=== PATIENT | female | born 1950 | race Caucasian/White ===

== ENCOUNTER 2023-12-19 17:27 | Emergency (ER) | payer MEDICARE, MEDICAID, SELFPAY ==
[2023-12-19 17:30] VITALS: BP 102/68; PULSE 79; RESP 19; TEMP 36.4; O2SAT 95; BMI 21.4
--- NOTE | 2023-12-19 17:40 | NURSING ---
NO OLD EKGS
--- NOTE | 2023-12-19 17:45 | EKG12_ITS ---
Test Reason : SYNCOPE Blood Pressure : / mmHG Vent. Rate : 079 BPM Atrial Rate : 079 BPM P-R Int : 186 ms QRS Dur : 086 ms QT Int : 394 ms P-R-T Axes : 061 -43 073 degrees QTc Int : 451 ms Normal sinus rhythm Left axis deviation Abnormal ECG Confirmed by FLORENCIO HIGGINS, PAULINA ([id number]), slot editor KATHY GUTIÉRREZ ([id number]) on 12/21/2023 10:44:29 AM Referred By: JADEN/ANASTASIA Confirmed By:PAULINA MATIAS MD
--- NOTE | 2023-12-19 17:48 | EX.ED.DYSGE1 ---
HPI <AMA Tello - Last Filed: 12/19/23 21:24> History of Present Illness Chief Complaint: Syncope Narrative Narrative: Patient presenting today due to a syncopal episode that occurred this evening. She reports that this has happened a few times over the past several months. She has been evaluated by her PCP for this with no clear cause. She reports that her and her daughter were going to go out to dinner when her leg started shaking, she was standing and felt like she was going to fall so she lowered herself to the ground and passed out. She denies hitting her head. She denies any history of seizures. She does admit to daily alcohol use and drinks about 2-3 beers each day, she did report having 2 beers today. She reports a PMH of hypothyroidism. She denies fevers, chills, chest pain, shortness of breath, abdominal pain, nausea, and vomiting. PFSH <AMA Tello - Last Filed: 12/19/23 21:24> PFSH Home Medications ?Medication ?Instructions ?Recorded ?Last Taken ?Type levothyroxine 100 mcg tablet 100 mcg PO DAILY 12/19/23 Unknown History (Euthyrox) Allergy/AdvReac Type Severity Reaction Status Date / Time No Known Allergies Allergy Verified 12/19/23 17:36 Social History Smoking Status: Never smoker ROS <AMA Tello - Last Filed: 12/19/23 21:24> ROS ED Constitutional Constitutional ED: Denies chills or fever(s) Cardiovascular Cardiovascular: Denies chest pain Respiratory/Chest Respiratory/Chest: Denies dyspnea Gastrointestinal Gastrointestinal: Denies abdominal pain, nausea or vomiting Genitourinary Genitourinary ED: Denies dysuria Musculoskeletal Musculoskeletal: Denies arthralgias or myalgias Integumentary Denies rash Neurologic Neurologic: Denies weakness EXAM <AMA Tello - Last Filed: 12/19/23 21:24> Physical Exam Const Vital Signs: 12/19/23 17:30 12/19/23 17:38 12/19/23 17:45 Temperature 97.6 F L Temperature Source Temporal Pulse Rate 79 Respiratory Rate 19 H Respiratory Effort Normal Non-Labored Respiratory Pattern Normal Blood Pressure 102/68 Blood Pressure Mean 79 Pulse Ox 95 Oxygen Delivery Method Room Air Room Air 12/19/23 18:55 12/19/23 20:00 12/19/23 20:30 Temperature 98.0 F Temperature Source Pulse Rate 83 87 75 Respiratory Rate 20 H 20 H 16 Respiratory Effort Respiratory Pattern Blood Pressure 152/84 H 136/84 H 134/68 H Blood Pressure Mean 106 101 90 Pulse Ox 96 95 100 Oxygen Delivery Method Room Air Room Air Positive well nourished, well developed and no apparent distress General Appearance ED: well developed HEENT Reports normocephalic and head/scalp atraumatic Mouth ED: Yes moist mucous membranes normal Eyes PERRL and EOMs intact bilaterally Neck full ROM and supple Chest Wall inspection of chest normal Resp normal respiratory effort and clear to auscultation bilaterally Cardio regular rate and regular rhythm GI soft to palpation, non-tender, non-distended and no masses Back/Spine normal ROM and normal to inspection Extremity normal to inspection and full ROM Neuro oriented x3, CN's II-XII intact bilaterally, moves all extremities, no focal motor deficits and no sensory deficits noted Sensorium / Orientation: awake and alert Psych mental status grossly normal and thought process normal Skin no rashes or lesions noted and no wounds <Dr. Harsha Prather DO - Last Filed: 12/20/23 00:06> Physical Exam Const Vital Signs: 12/19/23 17:30 12/19/23 17:38 12/19/23 17:45 Temperature 97.6 F L Temperature Source Temporal Pulse Rate 79 Respiratory Rate 19 H Respiratory Effort Normal Non-Labored Respiratory Pattern Normal Blood Pressure 102/68 Blood Pressure Mean 79 Pulse Ox 95 Oxygen Delivery Method Room Air Room Air 12/19/23 18:55 12/19/23 20:00 12/19/23 20:30 Temperature 98.0 F Temperature Source Pulse Rate 83 87 75 Respiratory Rate 20 H 20 H 16 Respiratory Effort Respiratory Pattern Blood Pressure 152/84 H 136/84 H 134/68 H Blood Pressure Mean 106 101 90 Pulse Ox 96 95 100 Oxygen Delivery Method Room Air Room Air MDM <AMA Tello - Last Filed: 12/19/23 21:24> [facility] MDM Narrative Medical decision making narrative: Patient presenting due to a syncopal event that occurred this evening. She is well-appearing and in no acute distress. She reports that this has happened a few times over the last few several months and she has seen her PCP for this with no clear cause. She does clinically appear intoxicated and does admit to daily alcohol use and reports she has 2-3 drinks daily. Cardiac labs obtained here, CBC is unremarkable. BMP shows a sodium of 132, chloride 97, patient given IV fluids and thiamine given concern for malnutrition due to alcohol abuse. Nonsignificant delta troponin. Chest x-ray shows scarring/atelectasis/pneumonia in the left lower lobe, patient does not have any clinical symptoms of pneumonia such as a cough, shortness of breath, or leukocytosis. Patient was observed for an extended period of time and clinically appears sober, she feels well and will be discharged home in stable condition. I encouraged that she have close follow-up with her PCP, strict return instructions given. Lab Data Attestation: I reviewed the patient's lab results. Labs: Laboratory Results - last 24 hr 12/19/23 12/19/23 17:20 19:47 WBC 6.8 RBC 3.92 L Hgb 13.4 Hct 38.5 MCV 98.2 MCH 34.2 H MCHC 34.8 RDW Std Deviation 50.2 H RDW Coeff of Herber 13.8 Plt Count 230 MPV 9.6 Immature Gran % (Auto) 1.200 H Neut % (Auto) 40.8 L Lymph % (Auto) 47.7 H [place] % (Auto) 8.5 Eos % (Auto) 1.2 Baso % (Auto) 0.6 Absolute Neuts (auto) 2.8 Absolute Lymphs (auto) 3.26 Nucleated RBC % 0 Sodium 132 L Potassium 3.8 Chloride 97 L Carbon Dioxide 25.0 Anion Gap 10 BUN 6 L Creatinine 0.80 Estim Creat Clear Calc 55.52 Est GFR (MDRD) Af Amer 90 Est GFR (MDRD) Non-Af 74 BUN/Creatinine Ratio 7.5 L Glucose 123 H Calcium 9.3 Troponin I High Sens 5 6 Radiography X-Ray: Read by ED Physician Diagnostic Testing: Clinical Impression(s) from Imaging Studies Chest X-Ray 12/19/23 18:15 IMPRESSION: 1. Left lower lobe pulmonary opacity may be scarring, atelectasis, or pneumonia. 2. Hyperinflated lungs with diffuse interstitial prominence likely indicative of COPD. Electronically Signed: Serjio Whitney, DO at 18:38 EDT , EKG Initial EKG: Comments: 79 bpm, normal sinus rhythm, left axis deviation, no ST elevation, reviewed and interpreted by attending ED physician <Dr. Harsha Prather, - Last Filed: 12/20/23 00:06> [facility] MDM Narrative Medical decision making narrative: Patient presenting due to a syncopal event that occurred this evening. She is well-appearing and in no acute distress. She reports that this has happened a few times over the last few several months and she has seen her PCP for this with no clear cause. She does clinically appear intoxicated and does admit to daily alcohol use and reports she has 2-3 drinks daily. Cardiac labs obtained here, CBC is unremarkable. BMP shows a sodium of 132, chloride 97, patient given IV fluids and thiamine given concern for malnutrition due to alcohol abuse. Nonsignificant delta troponin. Chest x-ray shows scarring/atelectasis/pneumonia in the left lower lobe, patient does not have any clinical symptoms of pneumonia such as a cough, shortness of breath, or leukocytosis. Patient was observed for an extended period of time and clinically appears sober, she feels well and will be discharged home in stable condition. I encouraged that she have close follow-up with her PCP, strict return instructions given. ED attending note: I evaluated the patient in conjunction with the ADAM. I agree with his/her statements and above findings. I have personally performed a face to face assessment of the patient and have reviewed the ADAM Note. I performed a substantive portion of the visit including all aspects of the following. I personally saw the patient performed chart review, physical exam, reviewed labs, imaging (if obtained), and formulated a treatment and management plan. I considered subarachnoid hemorrhage, pulm embolism, aortic dissection, AAA potential etiologies of the patient no headache, focal deficit, low risk Wells score, no chest pain, no focal neurologic deficits or pulse deficits, no pulsatile abdominal masses or abdominal bruits. Low sufficient for these rare but life-threatening etiology as a cause for syncope. This note was generated with [employer] software. It may contain incorrect words, spelling, and punctuation that were not noted in review of the chart prior to signing. Lab Data Labs: Laboratory Results - last 24 hr 12/19/23 12/19/23 17:20 19:47 WBC 6.8 RBC 3.92 L Hgb 13.4 Hct 38.5 MCV 98.2 MCH 34.2 H MCHC 34.8 RDW Std Deviation 50.2 H RDW Coeff of Herber 13.8 Plt Count 230 MPV 9.6 Immature Gran % (Auto) 1.200 H Neut % (Auto) 40.8 L Lymph % (Auto) 47.7 H [place] % (Auto) 8.5 Eos % (Auto) 1.2 Baso % (Auto) 0.6 Absolute Neuts (auto) 2.8 Absolute Lymphs (auto) 3.26 Nucleated RBC % 0 Sodium 132 L Potassium 3.8 Chloride 97 L Carbon Dioxide 25.0 Anion Gap 10 BUN 6 L Creatinine 0.80 Estim Creat Clear Calc 55.52 Est GFR (MDRD) Af Amer 90 Est GFR (MDRD) Non-Af 74 BUN/Creatinine Ratio 7.5 L Glucose 123 H Calcium 9.3 Troponin I High Sens 5 6 Radiography Diagnostic Testing: Clinical Impression(s) from Imaging Studies Chest X-Ray 12/19/23 18:15 IMPRESSION: 1. Left lower lobe pulmonary opacity may be scarring, atelectasis, or pneumonia. 2. Hyperinflated lungs with diffuse interstitial prominence likely indicative of COPD. Electronically Signed: Serjio Antony Whitney DO at 18:38 EDT , Discharge Plan Triage Chief Complaint: Syncope ED Midlevel Provider: Swathi Wyman ED Provider: Harsha Prather Dx/Rx/DC Orders Clinical Impression: Syncope Instructions: ED Fainting, Uncertain Cause Prescriptions: No Action levothyroxine [Euthyrox] 100 mcg tablet 100 mcg PO DAILY Primary Care Provider: Re Gordon Referrals: Re Gordon MD [Primary Care Provider] - 3-5 Days Activity Restrictions/Additional Instructions: Follow-up with your PCP and return for any worsening of your symptoms. Print Language: Kyrgyz Disposition Disposition: Home, Self Care Discharge Date/Time: 12/19/23 20:30
[2023-12-19 17:58] LABS: Absolute Lymphocyte Count 3.26 X10^3/uL (0.83-4.51); Absolute Neutrophil Count 2.8 X10^3/uL (2.0-7.7); Basophil# 0.04 X10^3/uL; Basophil% 0.6 % (0-1); Eosinophil# 0.08 X10^3/uL; Eosinophils% 1.2 % (0-5); Hematocrit 38.5 % (37-47); Hemoglobin 13.4 g/dL (12.0-15.0); Lymphocyte # 3.26 X10^3/ul (0.83-4.51); Lymphocyte % 47.7 % (19-41); Mean Corp Hgb Conc 34.8 g/dL (32-36); Mean Corpuscular Hgb 34.2 pg (27.0-32.0); Mean Corpuscular Volume 98.2 fL (81-99); Mean Platelet Vol. 9.6 fl (6.2-12.0); Monocyte# 0.58 X10^3/uL; Monocyte% 8.5 % (0-10); NRBC Flagged by Analyzer 0 % (0-5); Neutrophil # 2.79 X10^3/uL (2.7-7.7); Neutrophil % 40.8 % (47-70); Platelet Count 230 K/mm3 (150-450); RBC Distribution Width CV 13.8 % (11.6-14.6); RBC Distribution Width SD 50.2 fl (35.1-43.9); Red Blood Count 3.92 M/mm3 (4.2-5.4); White Blood Count 6.8 K/mm3 (4.4-11.0)
[2023-12-19] MEDS: 0.9% Normal Saline (1000mL) 1,000 ML 999 ML IV (18:04)
[2023-12-19 18:15] LABS: Anion Gap 10 (5-15); BUN 6 mg/dL (7-18); BUN/Creat Ratio 7.5 RATIO (10-20); Calcium,Total 9.3 mg/dL (8.5-10.1); Chloride 97 mmol/L (98-107); EST Glomerular Filtration Rate 74 mL/min (>60); Est Glom Filt Rate - Afr Amer 90 mL/min (>60); Estimated Creatinine Clearance 55.52 ml/min; Glucose 123 mg/dL (74-106); Potassium 3.8 mmol/L (3.5-5.1); Sodium Level 132 mmol/L (136-145); Troponin-I HS (w/2H Reflex) 5 pg/mL (3.0-54.0)
--- NOTE | 2023-12-19 18:15 | RAD_ITS ---
EXAM: XR CHEST, 1 VIEW CLINICAL INDICATION: syncope TECHNIQUE: Frontal view of the chest. COMPARISON: No relevant prior studies available. FINDINGS: LUNGS AND PLEURAL SPACES: Left lower lobe pulmonary opacity may be scarring, atelectasis, or pneumonia. Hyperinflated lungs with diffuse interstitial prominence likely indicative of COPD. No pneumothorax. No effusion. HEART: No significant abnormality. Cardiac silhouette not enlarged. MEDIASTINUM: Central airways and mediastinal contour are unremarkable. BONES/JOINTS: Degenerative changes in the spine and shoulders. Chronic fracture of the left clavicle. SOFT TISSUES: No significant abnormality. VASCULATURE: Atherosclerosis. RAD/Chest 1 View (Portable) IMPRESSION: 1. Left lower lobe pulmonary opacity may be scarring, atelectasis, or pneumonia. 2. Hyperinflated lungs with diffuse interstitial prominence likely indicative of COPD. Electronically Signed: Serjio Whitney DO at 18:38 EDT ,
[2023-12-19] MEDS: Thiamine Hydrochloride 100 MG in 0.9% Normal Saline (50mL Bag) 50 ML 200 MG IV (18:21)
[2023-12-19 18:55] VITALS: BP 152/84; PULSE 83; RESP 20; O2SAT 96
[2023-12-19 19:51] LABS: Reflex Troponin-HS? (from REC) Y
[2023-12-19 20:00] VITALS: BP 136/84; PULSE 87; RESP 20; O2SAT 95
[2023-12-19 20:10] LABS: Troponin-I HS 6 pg/mL (3.0-54.0)
[2023-12-19 20:30] VITALS: BP 134/68; PULSE 75; RESP 16; TEMP 36.7; O2SAT 100
== END 2023-12-19 20:30 | disposition home or self-care (01) ==
PROVIDERS: Physician Assistant; Emergency Provider Emergency Medicine; PCP Pediatrics; Visit Provider Emergency Medicine
DX: R55 Syncope and collapse (principal); E03.9 Hypothyroidism, unspecified; Z79.890 Hormone replacement therapy; F10.10 Alcohol abuse, uncomplicated
CPT/HCPCS: 71045; 80048; 84484; 85025; 93005; 96360; 99283; J7030; J7050; A4216; J3490